=== PATIENT | female | born 1980 | race Caucasian/White ===

== ENCOUNTER → 2020-05-13 | Outpatient (CLI) | payer OTHER | LOC: KOH-I 13:19 | DX: L40.59 Other psoriatic arthropathy (principal) | CPT/HCPCS: 71046 ==

== ENCOUNTER → 2021-04-09 | Outpatient (CLI) | payer OTHER | LOC: KOH-I 11:26 | DX: M25.542 Pain in joints of left hand (principal); M79.603 Pain in arm, unspecified | CPT/HCPCS: 73090; 73110; 73130 ==